=== PATIENT | female | born 1985 | race Caucasian/White ===

== ENCOUNTER 2016-12-07 16:31 | Outpatient (CLI) | payer OTHER ==
--- NOTE | 2016-12-08 13:57 | MRI Report ---
EXAM: MRI LUMBAR SPINE WITHOUT CONTRAST EXAM DATE: 12/07/2016 05:18 PM. CLINICAL HISTORY: Chronic low back pain. COMPARISON: None. TECHNIQUE: Multiplanar, multisequence T1-weighted and fluid-sensitive sequences of the lumbar spine f rom T12 to S1 without contrast. Other: None. FINDINGS: Spinal Cord: The conus terminates at L1. No signal abnormality in the visualized spinal cord. Alignment: Normal. No scoliosis or spondylolisthesis. Bone Marrow: Five [id number] lumbar vertebral bodies are assumed. No gross fractures or bone les ions. No bone marrow edema. Disk Levels/Facets: T12-L1: Unremarkable. L1-L2: Unremarkable. L2-L3: Unremarkable. L3-L4: Unremarkable. L4-L5: Broad-based disk bulge is seen. Prominent facets. No central or foraminal stenosis. L5-S1: Broad-based disk bulge. Prominent facets. Left lateral annular tear and small focal protrusion . Minimal left foraminal narrowing. Musculature: Normal. No edema or fatty atrophy. Other: The visualized pelvic cavity is unremarkable. IMPRESSION: 1. Spinal cord terminates at L1 which is normal. No abnormal cord signal. No marrow edema or stress r eaction, no fractures. Paraspinous muscles are unremarkable. 2. L4-L5 shows a broad-based disk bulge, no stenosis. 3. L5-S1 shows a broad-based bulge, left lateral annular tear and small focal protrusion. Minimal lef t foraminal stenosis. Comment: The following findings are so common in adults without low back pain that while we report th eir presence, they must be interpreted with caution and in the context of the clinical situation. (Re joanie Hernandez et al, Spine 2001) Prevalence of findings in patients without low back pain: Disk degeneration (any evidence): 92% Disk desiccation/T2 signal loss: 83% Disk height loss: 56% Disk bulge: 64% Disk protrusion: 32% Annular tear/high intensity zone: 38% [facility] Referring Provider Line: [phone] SITE ID: [id number]
== END 2016-12-07 16:32 | disposition home or self-care (01) ==
LOC: DI 16:31
DX: M54.5 Low back pain (principal); G89.29 Other chronic pain; M54.16 Radiculopathy, lumbar region
CPT/HCPCS: 72148